=== PATIENT | male | born 1960 | race Two or more races ===

== ENCOUNTER 2024-06-21 09:52 | Day surgery (SDC) | payer MEDICARE, BC ==
[2024-06-21] VITALS (12 sets, daily range): BP systolic 104–141; BP diastolic 54–65; PULSE 57–65; RESP 10–25; TEMP 97.9; O2SAT 93–98
[~2024-06-21] VITALS: Ht 180.3 cm; Wt 95.2 kg
--- NOTE | 2024-06-21 10:34 | RADIOLOGY REPORT ---
EXAM: DI CHEST,TWO VIEWS CLINICAL HISTORY: PREOP HEART CATH COMPARISON: None TECHNIQUE: Frontal and lateral view of the chest was obtained FINDINGS: Lines and Tubes: None Lungs: No focal consolidation. Pleura: No effusion. No pneumothorax. Cardiomediastinal contours: Unremarkable Pulmonary vasculature: Within normal limits. Bones: No acute osseous abnormality. IMPRESSION: 1. No acute cardiopulmonary disease. HS:Y
--- NOTE | 2024-06-21 10:39 | ELECTROCARDIOGRAPH REPORT ---
[facility] Test Date: 2024-06-21 Test Time: 10:35:16 Pat Name: BERLIN MIRANDA Department: [facility] Patient ID: [id number] Room: Gender: M Manager Of Internal: NAYLA : 1960 Requested By: ADRIANE DE LEON Order Number: [id number] Reading MD: Dr. Lowell Moctezmua Measurements Intervals [place] Rate: 62 P: 32 NC: 91 QRS: -50 QRSD: 167 T: 71 QT: 470 QTc: 478 Interpretive Statements Sinus rhythm Short NC interval Low QRS voltage limb leads Left bundle branch block Electronically Signed On 06-22-2024 9:44:[address] Lowell Moctezuma Please click the below link to view image of tracing.
[2024-06-21] MEDS ORDERED: Tumeric PO (10:42)
[2024-06-21] MEDS ORDERED: VITA1CAP8 (10:42)
[2024-06-21] MEDS ORDERED: FOLI1TAB27 PO (10:42)
[2024-06-21] MEDS ORDERED: ATOR40TA72 PO (10:42)
[2024-06-21] MEDS ORDERED: LOSA100T58 PO (10:42)
[2024-06-21] MEDS ORDERED: MAGN100T6 PO (10:42)
[2024-06-21] MEDS ORDERED: METH2.5T55 PO (10:42)
[2024-06-21] MEDS ORDERED: PANT40TA54 PO (10:42)
[2024-06-21] MEDS ORDERED: METF-438 PO (10:42)
[2024-06-21] MEDS ORDERED: TAMS-55 PO (10:42)
[2024-06-21] MEDS ORDERED: LACT1CAP65 PO (10:42)
[2024-06-21 11:32] LABS: BASOPHILS % (AUTO) 0.6 % (0-1); EOSINOPHILS # (AUTO) 0.1 X10'3 (0-0.9); EOSINOPHILS % (AUTO) 1.7 % (0-6); HEMATOCRIT 43.1 % (42.0-52.0); HEMOGLOBIN 14.6 g/dl (14.0-17.9); LYMPHOCYTES # (AUTO) 1.3 X10'3 (1.1-4.8); LYMPHOCYTES % (AUTO) 16.2 % (21-51); MEAN CORPUSCULAR HEMOGLOBIN 33.9 PG (27.0-31.0); MEAN CORPUSCULAR HGB CONC 33.9 g/dL (33.0-36.5); MEAN CORPUSCULAR VOLUME 99.9 FL (78-98); MEAN PLATELET VOLUME 7.9 FL (7.4-10.4); MONOCYTES # (AUTO) 0.6 X10'3 (0-0.9); MONOCYTES % (AUTO) 7.3 % (2-12); NEUTROPHILS # (AUTO) 5.8 X10'3 (1.8-7.7); NEUTROPHILS % (AUTO) 74.2 % (42-75); PLATELET COUNT 244 X10'3 (140-440); RED BLOOD COUNT 4.31 X10'6 (4.70-6.10); RED CELL DISTRIBUTION WIDTH 13.8 % (11.5-14.5); WHITE BLOOD COUNT 7.8 X10'3 (4.5-11.0)
[2024-06-21 11:49] LABS: ALBUMIN 4.1 G/DL (3.4-5.0); ANION GAP 7 (8-16); BLOOD UREA NITROGEN 22 MG/DL (7-18); BUN/CREATININE RATIO 24.2 (10.0-20.0); CHLORIDE 106 MMOL/L (99-107); CREATININE 0.91 MG/DL (0.60-1.10); GLUCOSE 120 MG/DL (70-104); POTASSIUM 4.1 MMOL/L (3.5-5.1); SODIUM 140 MMOL/L (135-145); eGFR 84 ML/MIN
[2024-06-21 12:06] LABS: APTT 28 SECONDS (22-32); PROTHROMBIN TIME 10.6 SECONDS (9.0-12.0)
[2024-06-21] MEDS: LORazepam 0.5 MG tablet PO ONE (12:20)
[2024-06-21] MEDS: diphenhydrAMINE 25mg capsule PO ONE (12:20)
[2024-06-21] MEDS ORDERED: iohexol 350 MG/ML 50ML vial IV ONE (12:43)
[2024-06-21] MEDS ORDERED: midazolam 1 mg/ML 2ml injection ONE ×2 (12:43→13:31)
[2024-06-21] MEDS ORDERED: LIDOcaine 1% 30ml preserv. free vial ONE (12:43)
[2024-06-21] MEDS ORDERED: fentaNYL/PF 50MCG/1 ML 2ML syringe ONE ×2 (12:43→13:31)
[2024-06-21] MEDS ORDERED: iohexol 350MG/ML 100ml bottle IV ONE (12:44)
[2024-06-21] MEDS ORDERED: normal saline 1000ml 1,000 ML IV SCH (14:30)
[2024-06-21] MEDS ORDERED: ondansetron/PF 4mg/2ml inj IV PRN (14:30)
[2024-06-21] MEDS ORDERED: HYDROcodone/acetaminophen 5mg/325mg tablet PO PRN (14:35)
[2024-06-21] MEDS ORDERED: HYDROcodone/acetaminophen 10/325mg tab PO PRN (14:35)
[2024-06-21] MEDS ORDERED: proCHLORperazine 10 MG/2 ml inj IV PRN (14:35)
[2024-06-21] MEDS ORDERED: OXAZEpam 15mg capsule PO PRN (14:35)
--- NOTE | 2024-06-21 17:27 | CARDIOLOGY REPORT ---
DATE OF SERVICE: 06/21/2024 DICTATING PHYSICIAN: Bello Altman MD LOCATION: [place], [place] PROCEDURES: * Left heart catheterization. * Left ventriculography. * Selected left and right coronary arteriography. * Conscious sedation administration 30 minutes. * Right iliofemoral arteriogram, Angio-Seal application. BRIEF HISTORY AND INDICATION: A 63-year-old male has several months' history of recurrent palpitation, tachycardia and possible associated panic stress reaction. He complains of fatigue and tiredness. He has underlying left bundle branch block, hypertension, nonalcoholic hepatic steatosis, and psoriatic arthritis. On 03/28/2004, he had a Lexiscan that was reported as normal. He was in [facility] where he had documented paroxysmal atrial fibrillation. Due to his continued symptoms, he had a repeat nuclear stress test, which shows fixed anterior and reverse anterior wall defects, 05/25/2024. Risks, benefits, and alternatives of diagnostic coronary angiography were discussed with the patient and he has decided to proceed. The risks included, but not restricted to , stroke, myocardial infarction, renal failure, neurologic stress complication, bleeding complication, allergic reaction. He desires stenting if he has a severe stenosis. TECHNIQUE: Following the usual sterile preparation and draping, the right one was infiltrated with 10 mL of 1% lidocaine local anesthetic. Conscious sedation was achieved with 25 mg of Benadryl, 3 mg of Versed, and 150 mcg of fentanyl. The patient was maintained on oxygen 2 liters per minute, normal saline 100 mL per hour. Following single wall puncture technique, J-tip guidewire lead, a 6-Irish sheath was introduced into the right femoral artery. Selected left and right coronary arteriography in multiple projectional obliquities were performed with 6-Irish femoral, left 4, right 4 Adolfo-shaped catheters. Left ventriculography in right anterior oblique projection with straight pigtail catheter. Catheter exchanges were under fluoroscopic guidance with J-tip guidewire lead. Right iliofemoral arteriogram was performed. Angio-Seal was supplied in laboratory scientist. Hemostasis was obtained. There were no complications. A 90 mL of Omnipaque 350 contrast was administered. Fluoroscopy time was 2.2 minutes. Radiation exposure 3208 cGy per cm2. FINDINGS: 5 feet 11 inches, 210 pounds, 63-year-old male, AO 122/60, LVEF 122/3-16. LEFT VENTRICULOGRAM: Ejection fraction of 66%, mitral valve prolapse, no mitral regurgitation. Anterior segment with prominent left ventricular trabeculations. Right iliofemoral artery is smooth. Left main coronary artery provides a left anterior descending and intermediate and left circumflex. A 10% narrowing of the left main coronary artery. The proximal anterior descending bifurcates into a large left anterior descending with diagonal size branch that wraps around the apex of the myocardium and a smaller median left anterior descending that provides the first septal. Large intermediate has scattered 15% narrowing, reaches the apex. Left circumflex is large, has approximately 20% narrowing, posterolateral branch 2 mm diameter. Smooth, tortuous right coronary artery has distal vasculature. Acute margin 1 mm in diameter, posterior descending 0.75 mm, posterolateral 0.75 mm. RESULTS: * Ejection fraction of 66%, normal contractility, anterior segment with prominent trabeculation, mitral valve prolapse, no mitral regurgitation. * A 10% left main coronary artery. * Bifurcated large left anterior descending wraps around the apex, smaller medial segment provides first septal. * Large intermediate with scattered 15% narrowing. * Large left circumflex with 20% proximal narrowing. * The right coronary smooth 2.5 mm diameter. Small distal vessels, acute marginal less than 1 mm, posterior descending 0.75 mm, posterolateral branch 0.75 mm. COMMENT: The patient has left ventricular variation with marked anterior trabeculation, which may explain his anterior abnormal nuclear stress test. In spite of the twig-like inferior vessels, there is no reversible ischemia and no angina pectoris. The is very concerned, daughter about the patient's palpitations. He has had documented paroxysmal atrial fibrillation. He has had past MCOT without any findings. He is recommended to have a cardio device to correlate symptoms with objective findings. Bello Altman MD TID: [id number] RECEIPT: [id number] TR/RUPESH cc: Jake Mayo MD, Anthony Stevenson MD
== END 2024-06-21 18:55 | disposition home or self-care (01) ==
LOC: SSTAY O 09:52
PROVIDERS: ATTEND Internal Medicine Cardiovascular Disease
DX: R94.39 Abnormal result of other cardiovascular function study (principal); I25.10 Atherosclerotic heart disease of native coronary artery without angina pectoris; I34.1 Nonrheumatic mitral (valve) prolapse; I48.0 Paroxysmal atrial fibrillation; I44.7 Left bundle-branch block, unspecified; Z79.899 Other long term (current) drug therapy; Z98.890 Other specified postprocedural states
CPT/HCPCS: 36415; 71046; 80048; 82948; 85025; 85610; 85730; 93005; 93458; 99152; 99153; A4615; A6258; C1760; J1644; J2003; J2250; J3010; J7030; Q0163; Q9967; Z7610